=== PATIENT | male | born 1965 | race African-American/Black ===

== ENCOUNTER 2017-07-21 21:07 | Emergency (ER) | payer OTHER ==
[~2017-07-21] VITALS: Ht 188 cm; Wt 106.6 kg
[~2017-07-21 21:07] MED LIST: CHOL2000 PO; HYDR-2766 PO; blood pressure PO; cholesterol med PO
[2017-07-21 21:47] LABS: BASO % 1 % (0-3); EOS % 3 % (0-3); HEMOGLOBIN 11.9 g/dL (13.0-17.5); LYMPH % 48 % (24-48); MEAN CORPUSCULAR HEMOGLOBIN 32 pg (25-35); MEAN CORPUSCULAR HGB CONC 34 g/dL (31-37); MEAN CORPUSCULAR VOLUME 93 fL (79-100); MONO % 9 % (0-9); NEUT % 39 % (31-73); PLATELET COUNT 244 x10^3/uL (140-400); RED BLOOD COUNT 3.77 x10^6/uL (4.30-5.70); RED CELL DISTRIBUTION WIDTH 13.7 % (11.5-14.5); WHITE BLOOD COUNT 6.3 x10^3/uL (4.0-11.0)
[2017-07-21 21:58] LABS: CALCIUM 8.9 mg/dL (8.5-10.1); CREATININE 0.9 mg/dL (0.7-1.3); GFR 106.8; POTASSIUM 3.2 mmol/L (3.5-5.1)
[2017-07-21] MEDS ORDERED: IOHEXOL 300 MG/ML 75 ML VIAL IV ONE (22:00)
[2017-07-21] MEDS ORDERED: IV NORMAL SALINE 1000ML BAG 1,000 ML IV ONE (22:00)
[2017-07-21] MEDS ORDERED: ONDANSETRON PF 4 MG/2 ML VIAL. IV ONE (22:00)
[2017-07-21] MEDS ORDERED: CONTRAST GIVEN MC PRN (22:00)
[2017-07-21 22:05] LABS: ALBUMIN 3.8 g/dL (3.4-5.0); ALBUMIN/GLOBULIN RATIO 1.1 (1.0-1.7); TOTAL BILIRUBIN 0.3 mg/dL (0.2-1.0); TOTAL PROTEIN 7.3 g/dL (6.4-8.2)
--- NOTE | 2017-07-21 22:05 | PHYS DOC ---
Past Medical History Past Medical History: High Cholesterol, Hypertension Past Surgical History: Other Additional Past Surgical Histo: left knee surgery Alcohol Use: Occasionally Drug Use: None Adult General Chief Complaint Chief Complaint: ABDOMINAL PAIN HPI HPI M Patient is a 52 year old M who presents with right lower quadrant abdominal pain for the past 3 days. Patient states the right lower quadrant abdominal pain is episodic and comes and goes. Patient does not know what brings it on or relieves the pain. Patient states he is nauseous but does not vomit. Patient denies any fevers. Patient had no previous abdominal surgeries. In the emergency room the pain is relieved and he is currently asymptomatic. Patient rates the pain when it comes on as 10 out of 10. Review of Systems Review of Systems GEN: Denies fevers, chills, sweats HEENT: Denies blurred vision, sore throat CV: Denies chest pain RESP: Denies shortness of air, cough GI: Abdominal pain with nausea NEURO: Denies confusion, dizziness MSK: Denies weakness, joint pain/swelling Current Medications Current Medications Current Medications Medications (Trade) Dose Ordered Sig/Cesar Start Time Stop Time Status Last Admin Dose Admin Fentanyl Citrate (Fentanyl 2ml Vial) 50 mcg 1X ONCE 07/21/17 23:30 07/21/17 23:31 07/21/17 23:07 50 MCG Info (Do NOT chart on this entry -- for MONITORING) 1 each PRN DAILY PRN 07/21/17 22:00 07/23/17 21:59 Iohexol (Omnipaque 300 Mg/ml) 75 ml 1X ONCE 07/21/17 22:00 07/21/17 22:01 DC 07/21/17 22:12 75 ML Ketorolac Tromethamine (Toradol) 30 mg STK-MED ONCE 07/21/17 22:15 07/21/17 22:16 DC Ondansetron HCl (Zofran) 4 mg 1X ONCE 07/21/17 22:00 07/21/17 22:01 DC 07/21/17 22:00 4 MG Sodium Chloride 1,000 ml @ 1,000 mls/hr 1X ONCE 07/21/17 22:00 07/21/17 22:59 DC 07/21/17 22:00 1,000 MLS/HR Allergies Allergies Allergies Coded Allergies Type Severity Reaction Last Updated Verified No Known Drug Allergies 08/12/14 No Physical Exam Physical Exam GEN.: No apparent distress. Alert and oriented. HEENT: Head is normocephalic, atraumatic NECK: Supple. LUNGS: CTAB. HEART: RRR, S1, S2 present. Peripheral pulses intact ABDOMEN: Soft, nontender, no tenderness to palpation to the abdomen in the emergency room. Positive bowel sounds. EXTREMITIES: Without any cyanosis. NEUROLOGIC: Normal speech, normal tone PSYCHIATRIC: Normal affect, normal mood. SKIN: No ulcerations Current Patient Data Vital Signs Vital Signs Date Time Temp Pulse Resp B/P (MAP) Pulse Ox O2 Delivery O2 Flow Rate FiO2 07/21/17 23:07 16 96 Room Air 07/21/17 21:15 98.3 64 139/81 (100) 98.3 Lab Values Laboratory Tests Test 07/21/17 21:10 07/21/17 22:05 White Blood Count 6.3 x10^3/uL (4.0-11.0) Red Blood Count 3.77 x10^6/uL (4.30-5.70) L Hemoglobin 11.9 g/dL (13.0-17.5) L Hematocrit 35.0 % (39.0-53.0) L Mean Corpuscular Volume 93 fL (79-100) Mean Corpuscular Hemoglobin 32 pg (25-35) Mean Corpuscular Hemoglobin Concent 34 g/dL (31-37) Red Cell Distribution Width 13.7 % (11.5-14.5) Platelet Count 244 x10^3/uL (140-400) Neutrophils (%) (Auto) 39 % (31-73) Lymphocytes (%) (Auto) 48 % (24-48) Monocytes (%) (Auto) 9 % (0-9) Eosinophils (%) (Auto) 3 % (0-3) Basophils (%) (Auto) 1 % (0-3) Neutrophils # (Auto) 2.5 x10^3uL (1.8-7.7) Lymphocytes # (Auto) 3.0 x10^3/uL (1.0-4.8) Monocytes # (Auto) 0.6 x10^3/uL (0.0-1.1) Eosinophils # (Auto) 0.2 x10^3/uL (0.0-0.7) Basophils # (Auto) 0.0 x10^3/uL (0.0-0.2) Sodium Level 141 mmol/L (136-145) Potassium Level 3.2 mmol/L (3.5-5.1) L Chloride Level 105 mmol/L (98-107) Carbon Dioxide Level 27 mmol/L (21-32) Anion Gap 9 (6-14) Blood Urea Nitrogen 12 mg/dL (8-26) Creatinine 0.9 mg/dL (0.7-1.3) Estimated GFR (Cockcroft-Gault) 106.8 BUN/Creatinine Ratio 13 (6-20) Glucose Level 95 mg/dL (70-99) Calcium Level 8.9 mg/dL (8.5-10.1) Total Bilirubin 0.3 mg/dL (0.2-1.0) Aspartate Amino Transferase (AST) 33 U/L (15-37) Alanine Aminotransferase (ALT) 32 U/L (16-63) Alkaline Phosphatase 56 U/L (46-116) Total Protein 7.3 g/dL (6.4-8.2) Albumin 3.8 g/dL (3.4-5.0) Albumin/Globulin Ratio 1.1 (1.0-1.7) Urine Collection Type Unknown Urine Color Yellow Urine Clarity Clear Urine pH 6.5 Urine Specific [place] 1.010 Urine Protein Negative mg/dL (NEG-TRACE) Urine Glucose (UA) Negative mg/dL (NEG) Urine Ketones (Stick) Negative mg/dL (NEG) Urine Blood Negative (NEG) Urine Nitrite Negative (NEG) Urine Bilirubin Negative (NEG) Urine Urobilinogen Dipstick 0.2 mg/dL (0.2 mg/dL) Urine Leukocyte Esterase Negative (NEG) Urine RBC 0 /HPF (0-2) Urine WBC 0 /HPF (0-4) Urine Bacteria 0 /HPF (0-FEW) Urine Mucus Slight /LPF Laboratory Tests 07/21/17 21:10 Laboratory Tests 07/21/17 21:10 EKG EKG [] Radiology/Procedures Radiology/Procedures CT scan abdomen pelvis with contrast NAD[] Course & Med Decision Making Course & Med Decision Making Pertinent Labs and Imaging studies reviewed. (See chart for details) ED course: Patient was seen and examined emergency room abdominal workup was done along with a CT scan abdomen pelvis and GC chlamydia of the urine 2318: Patient was reevaluated in which she was feeling much better. Patient asymptomatic at this time. Recommended short-term follow-up as PCP in one to 2 days and return symptoms increase. Patient was updated on CT findings and lab work. Explained the patient that if his urine comes back positive for chlamydia or gonorrhea he will be contacted and treatment will be instituted at that time. MDM: After reviewing the chart, CC/HPI/PMH, physical exam, [lab results], [ radiological results], I do not believe the patient has an intra-abdominal emergency warranting further workup and/or admission at this time. On reexamination the patient's asymptomatic and comfortable going home. Recommended short-term follow-up as PCP in one to 2 days. Patient stable for discharge. Additional verbal discharge instructions were provided to the patient and that if symptoms get worse or any new symptoms arise that are worrisome to the patient he is to return to the emergency room immediately [] Dragon Disclaimer Dragon Disclaimer This electronic medical record was generated, in whole or in part, using a voice recognition dictation system. Departure Departure Impression: Primary Impression: Abdominal pain Disposition: 01 HOME, SELF-CARE Condition: IMPROVED Referrals: DIPIKA MORENO MD (PCP) Patient Instructions: Abdominal Pain (Nonspecific) Additional Instructions: Please follow up with your family physician next one to 2 days and return if symptoms increase. DEBORAH DURAN DO Jul 21, 2017 22:05
[2017-07-21] MEDS ORDERED: KETOROLAC 30 MG/ML INJ. ONE (22:15)
[2017-07-21 22:21] LABS: BILIRUBIN,URINE NEGATIVE (NEG); GLUCOSE,URINE NEGATIVE (NEG); NITRITE,URINE NEGATIVE (NEG); PH,URINE 6.5; PROTEIN,URINE NEGATIVE (NEG-TRACE); UROBILINOGEN,URINE 0.2 mg/dL (0.2 mg/dL)
[2017-07-21] MEDS ORDERED: KETOROLAC 30 MG/ML INJ. IV ONE (22:30)
[2017-07-21 22:32] LABS: BACTERIA,URINE 0 /HPF (0-FEW); RBC,URINE 0 /HPF (0-2); WBC,URINE 0 /HPF (0-4)
--- NOTE | 2017-07-21 22:37 | RAD ---
Indication: Intermittent right groin pain for 4 days. Technique: Axial images and coronal and sagittal reformatted images are provided. 75 mL of intravenous Omnipaque 300 was administered without complication. No comparison is available. One or more of the following individualized dose reduction techniques were utilized for this examination: 1. Automated exposure control 2. Adjustment of the mA and/or kV according to patient size 3. Use of iterative reconstruction technique Findings: There is dependent atelectasis. There is no pleural effusion. The heart is not enlarged. Liver is normal in appearance. Gallbladder is unremarkable. Spleen is not enlarged. Benign calcifications are noted in the spleen. Pancreas and adrenals are unremarkable. Kidneys are symmetrically perfused. Aorta is normal caliber with minimal atheromatous disease. Lack of oral contrast limits evaluation of bowel. There is no small bowel obstruction or mural thickening. Normal appendix is noted. Colon is unremarkable. Small fat-containing umbilical hernia is noted. Bladder is unremarkable. Prostate is not enlarged. There is no inguinal hernia. There are mild degenerative changes in the spine. IMPRESSION: 1. No acute abdominal findings. Electronically signed by: Felipe Calix MD (07/21/2017 10:34 PM) [facility]
[2017-07-21] MEDS ORDERED: fentaNYL PF VIAL 100 MCG/2 ML VIAL IV ONE (23:30)
[2017-07-21 23:45] VITALS: BP 134/90
== END 2017-07-21 23:46 | disposition home or self-care (01) ==
LOC: ER 21:07
DX: R10.31 Right lower quadrant pain (principal); R11.0 Nausea; I10 Essential (primary) hypertension; E78.00 Pure hypercholesterolemia, unspecified
CPT/HCPCS: 36415; 74177; 80053; 81001; 85025; 87491; 87591; 96361; 96374; 96375; 99285; J1885; J2405; J3010; J7030; Q9967

== ENCOUNTER 2018-04-19 13:11 | Inpatient (IN) | payer OTHER ==
[2018-04-19 13:33] LABS: POC GLUCOSE 113 mg/dL (70-99)
[2018-04-19] MEDS: IV NORMAL SALINE 1000ML BAG 1,000 ML IV ×6 (13:53→16:43)
[2018-04-19 14:05] LABS: ANION GAP 15 (6-14); BLOOD UREA NITROGEN 35 mg/dL (8-26); BUN/CREATININE RATIO 10 (6-20); CALCIUM 10.8 mg/dL (8.5-10.1); CARBON DIOXIDE 25 mmol/L (21-32); CHLORIDE 99 mmol/L (98-107); CREATININE 3.5 mg/dL (0.7-1.3); GFR 22.2; GLUCOSE 120 mg/dL (70-99); POTASSIUM 3.9 mmol/L (3.5-5.1); SODIUM 139 mmol/L (136-145)
[2018-04-19 14:11] LABS: ALBUMIN 5.1 g/dL (3.4-5.0); ALBUMIN/GLOBULIN RATIO 1.3 (1.0-1.7); ALK PHOS 66 U/L (46-116); ALT (SGPT) 30 U/L (16-63); AST (SGOT) 38 U/L (15-37); TOTAL BILIRUBIN 0.6 mg/dL (0.2-1.0); TOTAL PROTEIN 9.1 g/dL (6.4-8.2)
[2018-04-19 14:16] LABS: TROPONINI < 0.017 ng/mL (0.000-0.055)
[2018-04-19 14:21] LABS: CKMB INDEX 0.6 % (0-4); CREATINE KINASE 1194 U/L (39-308)
[2018-04-19 15:01] LABS: ADD MAN DIFF? NO
[2018-04-19 15:03] LABS: BASO % 1 % (0-3); EOS # 0.2 x10^3/uL (0.0-0.7); EOS % 2 % (0-3); HEMOGLOBIN 14.2 g/dL (13.0-17.5); LYMPH # 1.7 x10^3/uL (1.0-4.8); LYMPH % 24 % (24-48); MEAN CORPUSCULAR HEMOGLOBIN 32 pg (25-35); MEAN CORPUSCULAR HGB CONC 35 g/dL (31-37); MEAN CORPUSCULAR VOLUME 92 fL (79-100); MONO % 13 % (0-9); NEUT # 4.4 x10^3uL (1.8-7.7); NEUT % 60 % (31-73); PLATELET COUNT 277 x10^3/uL (140-400); RED BLOOD COUNT 4.44 x10^6/uL (4.30-5.70); RED CELL DISTRIBUTION WIDTH 13.9 % (11.5-14.5); WHITE BLOOD COUNT 7.3 x10^3/uL (4.0-11.0)
[2018-04-19] MEDS ORDERED: ONDANSETRON PF 4 MG/2 ML VIAL. IV ×2 (15:15)
[2018-04-19] MEDS ORDERED: ACETAMINOPHEN 325 MG TABLET. PO ×2 (15:15)
[2018-04-19] MEDS ORDERED: fentaNYL PF VIAL 100 MCG/2 ML VIAL IV ×2 (15:15)
[2018-04-19] MEDS: IPRATRPIUM/ALBUTEROL 0.5/2.5MG 3 ML NEBU. NEB ×4 (15:54→19:43)
[2018-04-19 16:43] LABS: THYROID STIM HORMONE (TSH) 2.395 uIU/mL (0.358-3.74)
[2018-04-19 17:35] LABS: BILIRUBIN,URINE SMALL (NEG); CLARITY,URINE CLEAR; COLOR,URINE YELLOW; GLUCOSE,URINE NEGATIVE (NEG); NITRITE,URINE NEGATIVE (NEG); PH,URINE 5.5; PROTEIN,URINE 100 mg/dL (NEG-TRACE)
[2018-04-19 17:50] LABS: BACTERIA,URINE 0 /HPF (0-FEW); RBC,URINE 0 /HPF (0-2)
[2018-04-19 17:51] LABS: GRANULAR CASTS,URINE FEW /HPF; HYALINE CASTS, URINE MANY /HPF
[2018-04-19 18:07] LABS: TROPONINI < 0.017 ng/mL (0.000-0.055)
[2018-04-19] MEDS: fentaNYL PF VIAL 100 MCG/2 ML VIAL IV ×2 (19:42)
[2018-04-20] MEDS: IV NORMAL SALINE 1000ML BAG 1,000 ML IV ×2 (01:38)
[2018-04-20 04:39] LABS: ADD MAN DIFF? NO
[2018-04-20 04:46] LABS: BASO % 1 % (0-3); EOS # 0.2 x10^3/uL (0.0-0.7); EOS % 4 % (0-3); HEMATOCRIT 35.4 % (39.0-53.0); HEMOGLOBIN 12.1 g/dL (13.0-17.5); LYMPH # 1.8 x10^3/uL (1.0-4.8); LYMPH % 26 % (24-48); MEAN CORPUSCULAR HEMOGLOBIN 32 pg (25-35); MEAN CORPUSCULAR HGB CONC 34 g/dL (31-37); MEAN CORPUSCULAR VOLUME 93 fL (79-100); MONO # 0.8 x10^3/uL (0.0-1.1); MONO % 12 % (0-9); NEUT # 3.8 x10^3uL (1.8-7.7); NEUT % 57 % (31-73); PLATELET COUNT 213 x10^3/uL (140-400); RED CELL DISTRIBUTION WIDTH 14.3 % (11.5-14.5); WHITE BLOOD COUNT 6.7 x10^3/uL (4.0-11.0)
[2018-04-20 05:10] LABS: ANION GAP 8 (6-14); BLOOD UREA NITROGEN 34 mg/dL (8-26); BUN/CREATININE RATIO 23 (6-20); CARBON DIOXIDE 26 mmol/L (21-32); CHLORIDE 107 mmol/L (98-107); CREATININE 1.5 mg/dL (0.7-1.3); GLUCOSE 97 mg/dL (70-99); POTASSIUM 3.8 mmol/L (3.5-5.1); SODIUM 141 mmol/L (136-145)
[2018-04-20 05:22] LABS: ALBUMIN 3.6 g/dL (3.4-5.0); ALK PHOS 57 U/L (46-116); ALT (SGPT) 39 U/L (16-63); AST (SGOT) 35 U/L (15-37); TOTAL BILIRUBIN 0.4 mg/dL (0.2-1.0); TOTAL PROTEIN 7.1 g/dL (6.4-8.2)
[2018-04-20 05:24] LABS: CALCIUM 8.8 mg/dL (8.5-10.1); CREATINE KINASE 1201 U/L (39-308)
[2018-04-20] MEDS: IPRATRPIUM/ALBUTEROL 0.5/2.5MG 3 ML NEBU. NEB ×4 (07:22→11:33)
[2018-04-20] MEDS: fentaNYL PF VIAL 100 MCG/2 ML VIAL IV ×2 (10:40)
== END 2018-04-20 12:45 | disposition home or self-care (01) | DRG 683 ==
LOC: ER 13:11 → 5 SOUTH 14:53
PROVIDERS: Family Medicine
DX: N17.9 Acute kidney failure, unspecified (principal); M62.82 Rhabdomyolysis; I10 Essential (primary) hypertension; E78.00 Pure hypercholesterolemia, unspecified; J45.909 Unspecified asthma, uncomplicated; T67.5XXA Heat exhaustion, unspecified, initial encounter; E86.0 Dehydration; E78.5 Hyperlipidemia, unspecified; F41.9 Anxiety disorder, unspecified; M19.90 Unspecified osteoarthritis, unspecified site; G47.00 Insomnia, unspecified; X30.XXXA Exposure to excessive natural heat, initial encounter; Z87.891 Personal history of nicotine dependence; Y93.89 Activity, other specified; Y92.89 Other specified places as the place of occurrence of the external cause; Y99.8 Other external cause status; Z82.49 Family history of ischemic heart disease and other diseases of the circulatory system; Z83.49 Family history of other endocrine, nutritional and metabolic diseases
CPT/HCPCS: 36415; 71046; 80053; 81001; 82550; 82553; 82962; 84443; 84484; 85025; 93005; 93306; 96360; 96361; 96374; 96376; 99285-25; G0378; G0379; J3010; J7030

== ENCOUNTER 2020-04-05 21:54 | Emergency (ER) | payer MEDICARE, OTHER ==
[~2020-04-05] VITALS: Ht 188 cm; Wt 125.0 kg
[~2020-04-05 21:54] MED LIST changes: +CYCL10TA2 PO; -HYDR-2766 PO; +HYDR-2769 PO; +LOSA1TAB19 PO; +ZOLP5TAB PO
[2020-04-05 22:28] VITALS: BP 198/95
[2020-04-05] MEDS ORDERED: AMIT25TA PO (22:41)
--- NOTE | 2020-04-05 22:41 | PHYS DOC ---
Past Medical History Past Medical History: Asthma, High Cholesterol, Hypertension Past Surgical History: Other Additional Past Surgical Histo: left knee surgery Smoking Status: Former Smoker Alcohol Use: Occasionally Drug Use: None General Adult EDM: Chief Complaint: INSECT BITE HPI: HPI: Patient is a 55 year old male who presents with complaint of right lower leg pain for the last year. Patient had been bitten by a spider on that leg about a year ago and has had a chronic sore. Patient is on his second course of doxycycline currently. He has been prescribed hydrocodone for pain but states that he is not able to sleep because of the pain in his leg. Patient denies any fever. [] Review of Systems: Review of Systems: Constitutional: Denies fever or chills. [] Respiratory: Denies cough or shortness of breath. [] Cardiovascular: Denies chest pain or edema. [] Musculoskeletal: Complains of right lower leg pain. [] Integument: Complains of ulceration/sore right lower leg. [] Heart Score: Risk Factors: Risk Factors: DM, Current or recent (<one month) smoker, HTN, HLP, family history of CAD, obesity. Risk Scores: Score 0 - 3: 2.5% MACE over next 6 weeks - Discharge Home Score 4 - 6: 20.3% MACE over next 6 weeks - Admit for Clinical Observation Score 7 - 10: 72.7% MACE over next 6 weeks - Early Invasive Strategies Allergies: Allergies: Allergies Coded Allergies Type Severity Reaction Last Updated Verified No Known Drug Allergies 08/12/14 No Physical Exam: PE: Constitutional: Well developed, well nourished, no acute distress, non-toxic appearance. [] Cardiovascular: Regular rate and rhythm [] Lungs & Thorax: Bilateral breath sounds clear to auscultation [] Skin: There is a nonhealing wound/ulceration to the inner aspect of the anterior right leg with minimal surrounding erythema. [] Neurologic: Alert and oriented X 3, no focal deficits noted. [] EKG: EKG: [] Radiology/Procedures: Radiology/Procedures: [] Course & Med Decision Making: Course & Med Decision Making Pertinent Labs and Imaging studies reviewed. (See chart for details) [] Dragon Disclaimer: Dragon Disclaimer: This electronic medical record was generated, in whole or in part, using a voice recognition dictation system. Departure Departure Impression: Primary Impression: Visit for wound check Additional Impression: Right leg pain Disposition: HOME, SELF-CARE Condition: STABLE Referrals: DIPIKA MORENO MD (PCP) Patient Instructions: Wound Care, [id number], Wound Check Scripts Amitriptyline Hcl (AMITRIPTYLINE HCL) 25 Mg Tablet 1 TAB PO QHS PRN for sleeplessness, #15 TAB Prov: MYRTLE FRENCH Jr. DO 04/05/20 Justicifation of Admission Dx: Justifications for Admission: Justification of Admission Dx: Comment: (Not applicable) MYRTLE FRENCH Jr. DO Apr 05, 2020 22:41
== END 2020-04-05 23:10 | disposition home or self-care (01) ==
LOC: ER 21:54
DX: M79.661 Pain in right lower leg (principal); J45.909 Unspecified asthma, uncomplicated; E78.00 Pure hypercholesterolemia, unspecified; I10 Essential (primary) hypertension; Z87.891 Personal history of nicotine dependence
CPT/HCPCS: 99283